=== PATIENT | female | born 1955 | race Caucasian/White ===

== ENCOUNTER 2019-02-06 09:46 | Observation (INO) ==
[2019-02-06] MEDS ORDERED: Isovue-370 500 ML BOTTLE IVP ONE (09:56)
[2019-02-06] MEDS ORDERED: Cefepime HCl 2,000 MG in 0.9 % Sodium Chloride Mini Bag 100 ML IVPB STA (09:58)
--- NOTE | 2019-02-06 10:02 | Emergency Department Note ---
Disposition Clinical Impression: Right wrist pain Disposition: Admitted As Inpatient Condition: Good Time of Disposition: 13:00 Extremity Problem HPI - General Chief complaint: ED Extremity Problem,Nontraumatic Stated complaint: Right Wrist infection from Ortho office Time Seen by Provider: 02/06/19 09:52 Source: patient Mode of arrival: private vehicle Limitations: no limitations Nursing Notes Reviewed: Yes Vital Signs Reviewed: Yes - History of Present Illness HPI Narrative: 63F that had right wrist surgery 11/11/18 that had an uneventful post-operative period until this past 02/04/19 when she developed pain and redness in the area. She was seen in Dr. Cedillo's office this morning where he identified a fluctuant area consistent with abscess as well as cellulitis. Dr. Cedillo reports that he would like to take the patient to the OR today for an I&D and requests basic labs and IV antibiotics. Pt reports she last ate at 0730 this morning at [employer] on her way here. Patient denies being bit by anything or having any accidents to the area. She denies fevers or chills. She reports pain to the area at rest and with movement of her thumb. Pain Scale: 10 - Related Data Home Medications Medication Instructions Recorded Confirmed Alendronate Sodium [Fosamax] 70 mg PO QWEEK 12/19/17 02/06/19 Gabapentin [Neurontin] 400 mg PO TID 12/19/17 02/06/19 Meclizine HCl [Verticalm] 25 mg PO DAILY PRN 12/19/17 02/06/19 Oxycodone HCl [Oxycontin] 5 mg PO HS 12/19/17 02/06/19 Simvastatin [Zocor] 20 mg PO HS 12/19/17 02/06/19 Citalopram Hydrobromide 10 mg PO DAILY 11/16/18 02/06/19 [Citalopram HBr] Pantoprazole Sodium 40 mg PO BID 11/16/18 02/06/19 Amantadine HCl [Amantadine] 100 mg PO BID 02/06/19 02/06/19 Venlafaxine HCl [Venlafaxine HCl 150 mg PO DAILY 02/06/19 02/06/19 ER] Previous Rx's Medication Instructions Recorded Doxycycline 100 mg PO BID 7 Days #14 capsule 02/08/19 Allergies Allergy/AdvReac Type Severity Reaction Status Date / Time codeine Allergy Hives Verified 06/26/17 09:56 Penicillins Allergy Hives Verified 06/26/17 09:56 Review of Systems: In addition to that documented in the HPI above, the additional ROS was obtained: Constitutional: Denies fevers or chills Eyes: Denies vision changes ENMT: Denies sore throat CV: Denies chest pain Resp: Denies SOB GI: Denies vomiting or diarrhea : Denies painful urination MSK: Denies recent trauma Skin: Reports erythema to her right wrist Neuro: Denies new numbness or tingling or weakness Endocrine: Denies unexpected weight loss Heme: Denies bleeding disorders Past Medical History - Past Medical History Attestation: Yes The following information was validated with the patient. Medical history: Reports: GERD, hyperlipidemia, migraine, osteoporosis, other Surgical history: Reports: cholecystectomy, orthopedic, other, other Psychiatric history: Reports: anxiety - Social History Smoking Status: Never smoker Smokeless Tobacco Status: No Alcohol use: Reports: none Drug use: Reports: none Physical Exam General: Alert and in no acute distress Skin: Warm, dry, intact, erythema the right wrist Head: Normocephalic and atraumatic Neck: Supple, trachea midline and no tenderness Cardiovascular: RRR, no murmur, normal perfusion Respiratory: CTAB, no wheezing, cough, or respiratory distress Musculoskeletal: Normal strength, tenderness to palpation of the right lateral wrist with proximal streaking up the forearm GI: Soft, nontender, nondistended. Bowel sounds present Neuro: A&O to person, place, time and situation. No focal deficits noted on exam Psychiatric: cooperative and appropriate mood and affect. - General General appearance: alert, in no apparent distress Course Vital Signs Temperature 98.2 F 02/06/19 09:52 Pulse Rate 69 02/06/19 09:52 Respiratory Rate 15 02/06/19 09:52 Blood Pressure 137/70 02/06/19 09:52 O2 Sat by Pulse Oximetry 100 02/06/19 09:52 Temperature 98.0 F 02/08/19 07:02 Pulse Rate 66 02/08/19 07:02 Respiratory Rate 15 02/08/19 07:02 Blood Pressure 117/63 02/08/19 07:02 O2 Sat by Pulse Oximetry 96 02/08/19 09:45 Oxygen Delivery Oxygen Delivery Room Air Extremity Problem, Nontraumati - MDM Narrative Medical decision making narrative: 63-year-old female that had surgery on her wrist on November 11 and had an uneventful postoperative period until this past Monday when she developed increased pain, swelling, erythema. Patient was seen at Dr. Nichole Álvarez's office this morning where he sent her to the emergency department to be admitted with IV antibiotics. Patient states her last meal was at 7:30 this morning when she stopped at [employer] on the way to the doctor. We will obtain CBC, BMP, lactic acid, blood cultures, EKG, CT with IV contrast on her right wrist. Dr. Nichole dan his said he wants the patient to remain nothing by mouth so that he can take her to the operating room later today. Dr. Nichole Álvarez also requested the patient receive vancomycin and Zosyn however the patient has a penicillin allergy so we will give her cefepime instead of Zosyn. Patient was admitted to Dr. Segura the hospitalist who agreed to take the patient to his care. Results of the workup in cluding any imaging and/or labwork was shared with the patient at bedside. Patient was given an opportunity to ask questions at bedside and all of their concerns were addressed. Patient verbalized understanding and agreement with plan of care. Pt remained stable while in the department. Patient's pain was treated while she was in the department. - Medical Records Medical records reviewed: Yes I reviewed the patient's medical records. - Lab Data Lab results reviewed: Yes I reviewed the patient's lab results. Result diagrams: 02/08/19 04:48 02/08/19 04:48 Lab Results 02/06/19 02/06/19 02/06/19 Range/Units 10:04 10:04 10:04 WBC 11.7 H (4.3-11.1) K/mcL RBC 4.70 (3.82-4.97) M/mcL Hgb 14.1 (11.5-15.4) g/dL Hct 43.9 (35.3-44.9) % MCV 93.4 (83.0-100.0) fL MCH 30.0 (28.0-33.3) pg MCHC 32.1 (31.6-35.5) g/dL RDW 12.7 (11.5-14.5) % Plt Count 242 (140-400) K/mcL MPV 11.1 (9.4-12.4) fL Immature Gran % 0.3 (0-4) % Seg Neutrophils % 82.0 % Lymphocytes % 10.8 % Monocytes % 5.7 % Eosinophils % 0.8 % Basophils % 0.4 % Neutrophils # 9.6 H (1.6-8.9) K/mcL Lymphocytes # 1.3 (0.6-4.6) K/mcL Monocytes # 0.7 (0.0-1.3) K/mcL Eosinophils # 0.1 (0.0-0.6) K/mcL Basophils # 0.1 (0.0-0.2) K/mcL ESR 24 H (0-15) mm/hr Sodium 140 (136-145) mEq/L Potassium 3.7 (3.5-5.1) mEq/L Chloride 104 (98-107) mEq/L Carbon Dioxide 29 (23-29) mEq/L BUN 11 (8-23) mg/dL Creatinine 0.69 (0.60-1.20) mg/dL Est GFR ( Amer) > 60 (> 60) Est GFR (Non-Af Amer) > 60 (> 60) BUN/Creatinine Ratio 16 (6-26) Glucose 118 H (70-105) mg/dL Calculated Osmolality 290 (280-300) Calcium 9.2 (8.6-10.3) mg/dL C-Reactive Protein 20 H (Less than 10) mg/L Blood Type Antibody Screen 02/06/19 Range/Units 10:34 WBC (4.3-11.1) K/mcL RBC (3.82-4.97) M/mcL Hgb (11.5-15.4) g/dL Hct (35.3-44.9) % MCV (83.0-100.0) fL MCH (28.0-33.3) pg MCHC (31.6-35.5) g/dL RDW (11.5-14.5) % Plt Count (140-400) K/mcL MPV (9.4-12.4) fL Immature Gran % (0-4) % Seg Neutrophils % % Lymphocytes % % Monocytes % % Eosinophils % % Basophils % % Neutrophils # (1.6-8.9) K/mcL Lymphocytes # (0.6-4.6) K/mcL Monocytes # (0.0-1.3) K/mcL Eosinophils # (0.0-0.6) K/mcL Basophils # (0.0-0.2) K/mcL ESR (0-15) mm/hr Sodium (136-145) mEq/L Potassium (3.5-5.1) mEq/L Chloride (98-107) mEq/L Carbon Dioxide (23-29) mEq/L BUN (8-23) mg/dL Creatinine (0.60-1.20) mg/dL Est GFR ( Amer) (> 60) Est GFR (Non-Af Amer) (> 60) BUN/Creatinine Ratio (6-26) Glucose (70-105) mg/dL Calculated Osmolality (280-300) Calcium (8.6-10.3) mg/dL C-Reactive Protein (Less than 10) mg/L Blood Type B NEGATIVE Antibody Screen NEGATIVE - Radiology Data Radiology results reviewed: Yes I reviewed the patient's radiology results. Wrist CT 02/06/19 11:46 IMPRESSION: Large amount of fluid within the 1st dorsal extensor compartment tendon sheaths, most consistent with focal tenosynovitis, possibly infectious. Overlying subcutaneous edema, likely cellulitis. No soft tissue gas or acute bony abnormality. D/ / 02/06/2019 11:58:25 Maximus Oconnor MD / steve Interpreting Provider: Maximus Oconnor MD - EKG Data EKG attestation: Yes I reviewed and interpreted this EKG. EKG results narrative: Heart rate 65, rhythm sinus, axis normal. Intervals within normal limits. No ST elevation or depression. Low voltage in precordial leads noted. Baseline wander in lead V4 limits interpretation of study. When compared with previous EKG dated 06/26/2017 there are no significant changes. Attestation Statement - Attestation Attestation: I, Victoriano Villa, examined this patient and my medical decision-making was reviewed with the PIPING SUPERVISOR/PA/Advanced Practice Nurse/Resident Physician. I agree with the documented findings, disposition and treatment plan as described except to the extent set forth below. 63-year-old female presents emergency Department with concerns of right wrist infection. Patient recently had surgery for correction of de Quervain's tenosynovitis. She now has inflammation over the surgical area that is streaking proximally. She has pain with passive range of motion of the thumb and forefinger. We spoke with the orthopedic physician, Dr. Soto who recommended patient be admitted to hospitalist for further care and evaluation. Patient started on antibiotics emergency department and will be admitted to hospitalist.
[2019-02-06 10:27] LABS: Basophils # 0.1 K/mcL (0.0-0.2); Basophils % 0.4 %; Eosinophils # 0.1 K/mcL (0.0-0.6); Eosinophils % 0.8 %; Hematocrit 43.9 % (35.3-44.9); Hemoglobin 14.1 g/dL (11.5-15.4); Immature Granulocytes % 0.3 % (0-4); Lymphocytes # 1.3 K/mcL (0.6-4.6); Lymphocytes % 10.8 %; Mean Corpuscular HGB Conc 32.1 g/dL (31.6-35.5); Mean Corpuscular Volume 93.4 fL (83.0-100.0); Mean Platelet Volume 11.1 fL (9.4-12.4); Monocytes # 0.7 K/mcL (0.0-1.3); Monocytes % 5.7 %; Neutrophils # 9.6 K/mcL (1.6-8.9); Platelet Count 242 K/mcL (140-400); Red Cell Distribution Width 12.7 % (11.5-14.5); White Blood Count 11.7 K/mcL (4.3-11.1)
[2019-02-06 10:46] LABS: BUN/Creatinine Ratio 16 (6-26); Blood Urea Nitrogen 11 mg/dL (8-23); C-Reactive Protein 20 mg/L (Less than 10); Calcium 9.2 mg/dL (8.6-10.3); Carbon Dioxide 29 mEq/L (23-29); Chloride 104 mEq/L (98-107); Glucose 118 mg/dL (70-105); Osmolality,Calculated 290 (280-300); Potassium 3.7 mEq/L (3.5-5.1); Sodium 140 mEq/L (136-145); eGFR For African Americans > 60 (> 60); eGFR For Non-African Americans > 60 (> 60)
[2019-02-06] MEDS ORDERED: *HR* FentaNYL (PF) 100 MCG/2 ML VIAL IVP ONE (11:13)
--- NOTE | 2019-02-06 12:37 | Internal Med History&Physical ---
Date of Encounter: 02/06/19 Time of Encounter: 12:35 Internal Medicine - H&P: HPI Chief complaint: send by orthopedics clinic due to cellulitis Admitted From: Home Plans for Post Hospital Care: Home History of present illness: Ms. Reyes is a 63 year old female past medical history of possible Parkinson's, sleep apnea, chronic back pain neck pain right shoulder pain, migraine, anxiety and depression who recently had right wrist surgery on 11/11/18 with orthopedist where she had an "stretching of her tendon". she was doing relatively fine except since Monday she has noticed increased pain and swelling and redness on the right wrist at the site of surgery. She denies any fevers or chills nausea or vomiting at home. Denies being on any antibiotics after surgery. Patient was sent from orthopedist office for incision and drainage and IV antibiotics. Patient ate this morning. Denies any tingling numbness or loss of sensation in her right wrist. Denies any other skin rash. Denies any chest pain difficulty breathing abdominal pain. Has chronic back pain and right shoulder pain. Reports some allergic reaction to amoxicillin where she had one vomiting episode but denies any skin hives, difficulty breathing or life- threatening illness and this was more than 5 years ago. Denies any other allergies. Does not know her home medication except oxycodone, gabapentin however is taking more medications. Patient was admitted in the ER with labs significant for mildly elevated WBC at 11.7, ESR 24 and CRP 20. Patient was given vancomycin and cefepime in ER. Past Med Surg Social Fam HX - Past Medical History Medical history: GERD, hyperlipidemia, migraine, osteoporosis, other Additional medical history: sleep apnea, possible Parkinson's Psychiatric history: anxiety - Past Surgical History Surgical History: cholecystectomy, orthopedic, other, other Additional surgical history: Hemorrhoidectomy. disc fusion. Left shoulder. Bilat foot - Social History Smoking Status: Never smoker Smokeless Tobacco Status: No Alcohol use: none Drug use: none - Additional Family History Additional family history: Mother had colon cancer at 69. Internal Medicine - H&P: Meds Alendronate Sodium [Fosamax] 70 mg PO QWEEK 12/19/17 [History] Amantadine HCl [Amantadine] 200 mg PO BID 12/19/17 [History] Aspirin [Adult Aspirin Regimen] 81 mg PO DAILY 12/19/17 [History] Calcium Carb, Citrate/Vit D3 [Calcium + D3 ER Tablet] 1 each PO DAILY 12/19/17 [History] Gabapentin [Neurontin] 400 mg PO TID 12/19/17 [History] Meclizine HCl [Verticalm] 25 mg PO DAILY PRN 12/19/17 [History] Oxycodone HCl [Oxycontin] 5 mg PO HS 12/19/17 [History] Simvastatin [Zocor] 20 mg PO HS 12/19/17 [History] Venlafaxine HCl [Venlafaxine HCl ER] 75 mg PO DAILY 12/19/17 [History] Citalopram Hydrobromide [Citalopram HBr] 1 tab PO PRN PRN 11/16/18 [History] PARoxetine HCl [Paroxetine HCl] 1 tab PO DAILY 11/16/18 [History] Pantoprazole Sodium 1 tab PO DAILY 11/16/18 [History] Pregabalin [Lyrica] 2 cap PO TID 11/16/18 [History] Temazepam [Restoril] 1 cap PO HS PRN 11/16/18 [History] Topiramate [Topamax] 1 tab PO DAILY 11/16/18 [History] Allergy/AdvReac Type Severity Reaction Status Date / Time codeine Allergy Hives Verified 06/26/17 09:56 Penicillins Allergy Hives Verified 06/26/17 09:56 All Systems PM: A 10-system review of systems was performed and is negative for pertinent findings except as documented above in the HPI. - Constitutional Vitals: Temp Pulse Resp BP Pulse Ox 98.2 F 73 15 137/71 100 02/06/19 09:52 02/06/19 11:46 02/06/19 11:46 02/06/19 11:46 02/06/19 11:46 Exam: Constitutional: Vitals as noted. Conversant. No Apparent Distress. Well groomed. No obvious deformities. Obese Eyes : Sclera white, conjunctiva clear, no lid lag, PEARLA. ENT : Grossly normal hearing. Oropharyngeal exam unremarkable. Moist mucus membranes. No JVD, no cervical lymphadenopathy. no thyromegaly or mass. Respiratory : Clear to auscultation bilaterally. No accessory muscle use, rales, rhonchi or wheezes Cardiovascular : RRR, +S1, +S2. no murmur, gallop, rubs. No chest wall tenderness GI/Abdominal : Soft, Non-tender, Non-distended, normal bowel sounds, no periton eal signs. no orgenomegaly or mass appreciated. no hernia. Musculoskeletal: pulses palpable and symmetrical in UE/LE. no calf tenderness. Rt wrist with fluctuance on dorsal compartment with redness, swelling and pain on ROM. Sensations intact distally. Neurological: AO X3, CN II-XII grossly intact, grossly normal motor and sensory exam. Skin: No skin rash, lesions or ulcers noted. Pych: anxious Internal Med - H&P Results - Labs CBC & Chem 7: 02/06/19 10:04 02/06/19 10:04 Labs: Short CBC 02/06/19 Range/Units 10:04 WBC 11.7 H (4.3-11.1) K/mcL Hgb 14.1 (11.5-15.4) g/dL Hct 43.9 (35.3-44.9) % Plt Count 242 (140-400) K/mcL Neutrophils # 9.6 H (1.6-8.9) K/mcL BMP 02/06/19 10:04 Sodium 140 Potassium 3.7 Chloride 104 Carbon Dioxide 29 BUN 11 Creatinine 0.69 Glucose 118 H Calcium 9.2 - Impressions ITS Impressions Wrist CT 02/06/19 11:46 IMPRESSION: Large amount of fluid within the 1st dorsal extensor compartment tendon sheaths, most consistent with focal tenosynovitis, possibly infectious. Overlying subcutaneous edema, likely cellulitis. No soft tissue gas or acute bony abnormality. D/ / 02/06/2019 11:58:25 Maximus Oconnor MD / steve Interpreting Provider: Maximus Oconnor MD - Assessment and Plan (1) Cellulitis Current Visit: Yes Status: Acute Assessment and plan: Patient has cellulitis over surgical site We will keep patient on empiric vancomycin. We will switch cefepime to Zosyn given allergy likely not accurate and monitor signs of allergies. Patient agreeable. Blood cultures collected in ER. Follow-up CT scan. Patient has plan for I&D with orthopedist however patient ate this morning. We will keep nothing by mouth after midnight for possible procedure tomorrow. Qualifiers: Site of cellulitis: extremity Site of cellulitis of extremity: upper extremity Laterality: right Qualified Code(s): L03.113 - Cellulitis of right upper limb (2) Chronic pain Current Visit: Yes Status: Acute Assessment and plan: Patient has chronic pain which she thinks is from working too hard on concrete floors Possible component of anxiety and depression. Patient had cardiac surgery related to pain Will need close outpatient follow-up. We will resume home medications for pain was confirmed. Qualifiers: Chronic pain type: other chronic pain Qualified Code(s): G89.29 - Other chronic pain (3) Migraine Current Visit: Yes Status: Acute Qualifiers: Migraine type: without aura Status migrainosus presence: without status migrainosus Intractability: not intractable Qualified Code(s): G43.009 - Migraine without aura, not intractable, without status migrainosus (4) Depression Current Visit: Yes Status: Acute Assessment and plan: Continue home medicine confirmed Qualifiers: Depression Type: unspecified Qualified Code(s): F32.9 - Major depressive disorder, single episode, unspecified (5) DVT prophylaxis Current Visit: Yes Status: Acute Assessment and plan: heparin sc - Time Spent With Patient Total time spent is greater than 50% in coordination of care (as documented) at patient's floor/unit and/or counseling patient:
[2019-02-06] MEDS ORDERED: *HR* Heparin 5,000 UNIT/ML VIAL SQ SCH (14:00)
[2019-02-06] MEDS ORDERED: FLU Vac QV 19-20 (6Month+)/PF 0.5 ML SYRINGE IM ONE (14:27)
[2019-02-06] MEDS ORDERED: Piperacillin/Tazobactam 3.375 GM in 0.9 % Sodium Chloride Mini Bag 100 ML IVPB SCH (16:00)
--- NOTE | 2019-02-06 19:39 | Orthopedics Progress Note ---
Date of Encounter: 02/06/19 Time of Encounter: 19:37 Subjective Interval history: S: Patient previously underwent right first dorsal compartment release about 3 months ago. She had been doing very well until Monday when she began noticing redness and swelling to the right radial wrist. She presented to the office today where she was referred to the emergency department due to concern for un derlying abscess. O: Afebrile and vital signs are stable Right wrist is puffy and fluctuant about the first dorsal compartment with surrounding cellulitis. No induration. The area is quite tender and radiates proximally to the mid radial forearm region. The patient can actively flex and extend all digits, extend the thumb, cross the index and long fingers, make an okay sign, and oppose the thumb. The fingertips are all grossly sensate and well-perfused, and the radial artery pulse is 2+. CT scan of the right wrist does show fluid in the first was compartment concerning for purulent tenosynovitis A: Purulent extensor tenosynovitis of the first dorsal compartment P: Plans for incision, drainage, irrigation, debridement tonight in the operating room. The risks discussed included but were not limited to stiffness, bleeding, infection, blood clots, damage to neurovascular structures, tendons, ligaments, and bone. Also discussed was the risk of continued symptoms and possible need for further procedures. I did discuss the anesthesia risks including stroke, heart attack, and . I did discuss the reasonable, foreseeable postoperative course with the patient. The patient did wish to proceed and consent was obtained. Objective Vital signs: Vital Signs Temp Pulse Resp BP Pulse Ox 02/06/19 15:27 98.6 F 75 15 124/76 95 02/06/19 14:00 100 02/06/19 13:11 15 138/74 02/06/19 11:46 73 15 137/71 100 02/06/19 09:52 98.2 F 69 15 137/70 100 Intake and Output 02/06/19 02/06/19 02/06/19 07:59 15:59 23:59 Intake Total 100 / 100 Output Total 100 / 100 Balance 0 / 0 Intake: IV Fluids 100 / 100 Maxipime 2,000 MG In 0.9 % 100 / 100 Sodium Chloride (Mini-Bag +) 100 ML @ 200 mls/hr IVPB NOW STA Rx#:[id number] Output: Urine 100 / 100 Other: Meal npo Weight 100.108 kg Blood Glucose* 102 Patient Weight 02/06/19 23:59 Weight 100.108 kg - Labs CBC & BMP: 02/06/19 10:04 02/06/19 10:04 Labs: Abnormal lab results WBC 11.7 K/mcL (4.3-11.1) H 02/06/19 10:04 Neutrophils # 9.6 K/mcL (1.6-8.9) H 02/06/19 10:04 ESR 24 mm/hr (0-15) H 02/06/19 10:04 Glucose 118 mg/dL (70-105) H 02/06/19 10:04 C-Reactive Protein 20 mg/L (Less than 10) H 02/06/19 10:04 Consult Discharge Plan - Plan Referrals: Lang Davis MD [Primary Care Provider] -
--- NOTE | 2019-02-06 20:08 | Anesthesia Evaluation PreOp ---
Date of Encounter: 02/06/19 Time of Encounter: 20:00 - Past History Planned Operation: Incision Drainage Rt Upper Extremity Cardiac History: Hyperlipidemia Pulmonary History: SHASTA Dx STEELWORKER History: Other (Parkinson's) Other Medical History: GERD, Other (Anxiety) Anesthesia History: No Prior Anesthetic Complications : No Alcohol Use: none Drug use: none Medications and Allergies Alendronate Sodium [Fosamax] 70 mg PO QWEEK 12/19/17 [History] Gabapentin [Neurontin] 400 mg PO TID 12/19/17 [History] Meclizine HCl [Verticalm] 25 mg PO DAILY PRN 12/19/17 [History] Oxycodone HCl [Oxycontin] 5 mg PO HS 12/19/17 [History] Simvastatin [Zocor] 20 mg PO HS 12/19/17 [History] Citalopram Hydrobromide [Citalopram HBr] 10 mg PO DAILY 11/16/18 [History] Pantoprazole Sodium 40 mg PO BID 11/16/18 [History] Amantadine HCl [Amantadine] 100 mg PO BID 02/06/19 [History] Venlafaxine HCl [Venlafaxine HCl ER] 150 mg PO DAILY 02/06/19 [History] Allergy/AdvReac Type Severity Reaction Status Date / Time codeine Allergy Hives Verified 06/26/17 09:56 Penicillins Allergy Hives Verified 06/26/17 09:56 - Meds/Allergy Pre-op Review Medications Reviewed: Yes Allergies Reviewed: Yes Beta Blockers on Current Med List: No Anesthesia Results - Labs 02/06/19 10:04 02/06/19 10:04 Anesthesia Exam O2 Sat Height 1.65 m Weight 100.108 kg O2 Sat by Pulse Oximetry 96 O2 Sat by Pulse Oximetry 95 O2 Sat by Pulse Oximetry 100 O2 Sat by Pulse Oximetry 100 O2 Sat by Pulse Oximetry 100 Vital Signs Temp Pulse Resp BP Pulse Ox 98.2 F 69 15 137/70 100 02/06/19 09:52 02/06/19 09:52 02/06/19 09:52 02/06/19 09:52 02/06/19 09:52 Height: 5'5 Weight: 220 lbs NPO (# of Hours): 0800 breakfast Pain Scale: 0 - HEENT Pupil (Motor): Pupils equal, EOMI Mallampati: II Teeth: Normal Oral Opening: Greater than 3 - STEELWORKER LOC: Oriented STEELWORKER Motor: Normal RUE, Normal LUE, Normal RLE, Normal LLE, Normal Face STEELWORKER Sensory: Normal: RUE, LUE, RLE, LLE, Face - Cardiac Rhythm: Regular Murmur: None JVD: No Carotid Bruit: No - Pulmonary Breath Sounds: bilateral Clear Respiratory Effort: Symmetrical Anesthesia Assess/Plan ASA Score: 2 Level of consciousness: Cooperative, Oriented Anesthetic Plan: General Autologous Blood: No Monitoring Plan: Standard Monitors Recovery Plan: PACU (Discussed GA, agrees to proceed)
[2019-02-06] MEDS ORDERED: Bupivacaine/EPI 1:200k 0.5%PF 10 ML VIAL ONE (20:11)
[2019-02-06] MEDS ORDERED: Lidocaine/EPI 1:100k 1% 20 ML VIAL ONE (20:11)
[2019-02-06] MEDS ORDERED: Acetaminophen IV 1,000 MG/100 ML INFUS..BTL ONE (20:12)
[2019-02-06] MEDS ORDERED: Famotidine 20 MG/2 ML VIAL ONE (20:12)
[2019-02-06] MEDS ORDERED: *HR* FentaNYL (PF) 100 MCG/2 ML VIAL ONE (20:21)
[2019-02-06] MEDS ORDERED: *HR* Propofol 200 MG/20 ML VIAL IVP ONE (20:21)
[2019-02-06] MEDS ORDERED: Lidocaine -MPF 2% 2 ML VIAL ONE (20:21)
[2019-02-06] MEDS ORDERED: Dexamethasone 4 MG/ML VIAL ONE (20:22)
[2019-02-06] MEDS ORDERED: *HR* Succinylcholine 200 MG/10 ML VIAL IVP ONE (20:22)
[2019-02-06] MEDS ORDERED: Ondansetron 4 MG/2 ML VIAL ONE (20:22)
[2019-02-06] MEDS ORDERED: Ketorolac 30 MG/ML VIAL ONE (20:44)
[2019-02-06] MEDS ORDERED: Ondansetron 4 MG/2 ML VIAL IVP ONE ×2 (21:02→21:37)
[2019-02-06] MEDS ORDERED: *HR* OxyCODONE Immed Rel 5 MG TABLET PO PRN ×2 (21:02→21:37)
[2019-02-06] MEDS ORDERED: Morphine Sulfate 2 MG/ML SYRINGE IVP PRN ×2 (21:02→21:37)
--- NOTE | 2019-02-06 21:17 | Orthopedic Operative Note ---
Date of procedure: 02/06/19 Procedure: OPERATIVE REPORT SURGEON: Avel Cedillo MD PREOPERATIVE DIAGNOSIS: Right purulent extensor tenosynovitis of the first dorsal compartment POSTOPERATIVE DIAGNOSIS: Same PROCEDURE: Incision, drainage, irrigation, and debridement of the right first dorsal compartment ANESTHESIA: Gen. anesthesia SPECIMENS: Culture sent for aerobic and anaerobic specimens PREOPERATIVE NOTE The surgical plan was reviewed with the patient. The risks, benefits, alternatives, and potential complications of this procedure were discussed with the patient including injury to veins, arteries, nerves, tendons, ligaments, and bone. Also discussed were the risks of infection, bleeding, pain, blood clots, the possible need for a blood transfusion, the possible need for further procedures, heart attack, stroke, and . Additional risks include continued symptoms despite surgery or the need for further debridements. All of this was explained in simple terms, and the patient verbalized understanding and wished to proceed. Consent was given to proceed with surgery. PROCEDURE: The patient was seen in the preoperative holding area where the identify and the consent were confirmed. The right wrist was marked. Final questions were answered. The patient was brought back to the operating room and placed supine on the operating room table. A huddle was performed with the patient and all vital surgical team members confirming patient identity, the correct procedure, and the correct operative site. Gen. anesthesia was administered. The operative extremity was prepped and draped in the usual sterile fashion. A surgical time out was performed immediately preceding the incision with all personnel in the operating room to confirm patient identity, the correct operative site and extremity, correct radiographic studies, availability of appropriate surgical equipment, and agreement on the planned procedure. The tourniquet was inflated without examination. The old incision was opened and the subcutaneous tissue was spread open with scissors bluntly. This did immediately decompress copious amounts of purulent material. This was swabbed for culture. There is a moderate amount of tenosynovitis which was sharply debrided. No necrotic material. The wound was flushed with 3 L of saline. It was closed loosely over a quarter inch Jordyn drain. A soft, sterile dressing was applied. The instrument, sponge, and needle counts were correct after wound closure. POST OPERATIVE PLAN: Continue IV antibiotics for the primary team. Follow cultures. Was there an exceptional children teacher assistant present: No Estimated blood loss (cc): 1
--- NOTE | 2019-02-06 21:59 | Anesthesia Evaluation Post Op ---
Date of Encounter: 02/06/19 Time of Encounter: 21:20 - Vital Signs Vital Signs: Vital Signs/O2 Sat/Glucose, Most Current Temp Pulse Resp BP Pulse Ox 02/06/19 21:30 99.9 F H 65 16 120/69 94 02/06/19 21:20 66 15 134/71 92 02/06/19 21:10 67 16 127/73 92 02/06/19 21:00 98.1 F 68 17 147/93 92 02/06/19 19:36 98.4 F 83 16 123/66 96 - Lungs Lungs: Clear Ascult./Percussion - Airway Airway: Non-obstructed - Cardiovascular Regular Rate - Mental Status Mental Status: Alert & Oriented, Answers Appropriately - Pain Pain Scale: 0 - Nausea Vomiting Nausea Vomiting: Not Present - Hydration Hydration: Ice chips - Discharge PostOp Status: Transfer Patient to floor
[2019-02-06] MEDS: *HR* Heparin 5,000 UNIT/ML VIAL SQ SCH (22:04)
[2019-02-07] MEDS: Piperacillin/Tazobactam 3.375 GM in 0.9 % Sodium Chloride Mini Bag 100 ML IVPB SCH ×4 (00:40→23:06)
[2019-02-07] MEDS: *HR* Heparin 5,000 UNIT/ML VIAL SQ SCH ×3 (05:50→20:35)
--- NOTE | 2019-02-07 06:53 | Electrocardiograph Report ---
[employer] [facility] Test Date: 2019-02-06 Pat Name: Ayla Reyes Department: EXAM6 Room: [facility] Gender: F Venetian Blind [employer]her: : 1955 Requested By: Jada Watkins Order Number: [id number] Reading MD: Henry Daniels Measurements Intervals [place] Rate: 65 P: 8 GA: 119 QRS: 20 QRSD: 86 T: 57 QT: 409 QTc: 426 Interpretive Statements Sinus rhythm Electronically Signed On 02-07-2019 6:52:12 EDT by Henry Daniels
[2019-02-07 07:13] LABS: Basophils % 0.2 %; Hematocrit 40.7 % (35.3-44.9); Hemoglobin 13.1 g/dL (11.5-15.4); Lymphocytes # 0.5 K/mcL (0.6-4.6); Lymphocytes % 6.3 %; Mean Corpuscular HGB Conc 32.2 g/dL (31.6-35.5); Mean Corpuscular Hemoglobin 30.6 pg (28.0-33.3); Mean Corpuscular Volume 95.1 fL (83.0-100.0); Mean Platelet Volume 11.4 fL (9.4-12.4); Monocytes # 0.2 K/mcL (0.0-1.3); Monocytes % 2.6 %; Neutrophils # 7.6 K/mcL (1.6-8.9); Platelet Count 226 K/mcL (140-400); Red Blood Count 4.28 M/mcL (3.82-4.97); Red Cell Distribution Width 12.7 % (11.5-14.5); Segmented Neutrophils % 89.9 %; White Blood Count 8.4 K/mcL (4.3-11.1)
[2019-02-07] MEDS ORDERED: Acetaminophen 325 MG TABLET PO ONE (07:20)
[2019-02-07 07:28] LABS: BUN/Creatinine Ratio 16 (6-26); Blood Urea Nitrogen 11 mg/dL (8-23); Calcium 8.6 mg/dL (8.6-10.3); Carbon Dioxide 26 mEq/L (23-29); Chloride 106 mEq/L (98-107); Glucose 136 mg/dL (70-105); Osmolality,Calculated 293 (280-300); Potassium 3.8 mEq/L (3.5-5.1); Sodium 141 mEq/L (136-145); eGFR For African Americans > 60 (> 60); eGFR For Non-African Americans > 60 (> 60)
--- NOTE | 2019-02-07 07:34 | Orthopedics Progress Note ---
Date of Encounter: 02/07/19 Time of Encounter: 07:32 Subjective Interval history: S: Patient is seen today and has no complaints. Pain significantly improved to the right wrist O: Afebrile and vital signs are stable Minimal serosanguineous drainage from the wound. The [place] drain was pulled. Significant improvement of the cellulitis with marked this patient Neurovascularly intact distally A: Post I&D of the right radial wrist P: Resume postoperative care Anticipate discharge on oral antibiotics tomorrow Objective Vital signs: Vital Signs Temp Pulse Resp BP Pulse Ox 02/07/19 04:41 98.1 F 72 16 100/64 93 02/07/19 00:35 98.1 F 70 18 99/62 92 02/06/19 23:35 98.0 F 70 18 95/53 93 02/06/19 23:12 98.6 F 74 16 125/70 96 02/06/19 22:35 91 18 114/66 91 02/06/19 22:05 78 18 121/74 94 02/06/19 21:35 98.0 F 68 18 121/71 94 02/06/19 21:30 99.9 F H 65 16 120/69 94 02/06/19 21:20 66 15 134/71 92 02/06/19 21:10 67 16 127/73 92 02/06/19 21:00 98.1 F 68 17 147/93 92 02/06/19 19:36 98.4 F 83 16 123/66 96 02/06/19 15:27 98.6 F 75 15 124/76 95 02/06/19 14:00 100 02/06/19 13:11 15 138/74 02/06/19 11:46 73 15 137/71 100 02/06/19 09:52 98.2 F 69 15 137/70 100 Intake and Output 02/06/19 02/06/19 02/07/19 15:59 23:59 07:59 Intake Total 100 / 130 30 / 130 350 / 350 Output Total 100 / 101 1 / 101 Balance 0 / 29 29 / 29 350 / 350 Intake: IV Fluids 100 / 100 350 / 350 Maxipime 2,000 MG In 0.9 % 100 / 100 Sodium Chloride (Mini-Bag +) 100 ML @ 200 mls/hr IVPB NOW STA Rx#:[id number] Zosyn 3.375 GM In 0.9 % Sodium 100 / 100 Chloride (Mini-Bag +) 100 ML @ 25 mls/hr IVPB Q8HR [facility] Rx#: [id number] Vancocin 1,500 MG In 0.9 % 250 / 250 Sodium Chloride 250 ML @ 166.67 mls/hr IVPB Q12H [facility] Rx#: [id number] Oral 30 / 30 Output: Urine 100 / 100 Estimated Blood Loss Other: Meal npo # Voids 1 Weight 100.108 kg 99.6 kg Blood Glucose* 102 Patient Weight 02/07/19 23:59 Weight 99.6 kg - Labs CBC & BMP: 02/07/19 05:58 02/07/19 05:58 Labs: Abnormal lab results WBC 11.7 K/mcL (4.3-11.1) H 02/06/19 10:04 Neutrophils # 9.6 K/mcL (1.6-8.9) H 02/06/19 10:04 Lymphocytes # 0.5 K/mcL (0.6-4.6) L 02/07/19 05:58 ESR 24 mm/hr (0-15) H 02/06/19 10:04 Glucose 136 mg/dL (70-105) H 02/07/19 05:58 POC Glucose 102 mg/dL (70-99) H 02/06/19 17:06 C-Reactive Protein 20 mg/L (Less than 10) H 02/06/19 10:04 Consult Discharge Plan - Plan Referrals: Lang Davis MD [Primary Care Provider] - Avel Cedillo MD [Partnered Physician] -
[2019-02-07] MEDS ORDERED: SUMAtriptan succinate 25 MG TABLET PO ONE ×2 (08:33→20:54)
[2019-02-07] MEDS: Gabapentin 400 MG CAPSULE PO SCH ×3 (09:14→20:35)
[2019-02-07] MEDS: Venlafaxine XR (24 HR) 75 MG CAP.ER.24H PO SCH (09:16)
--- NOTE | 2019-02-07 10:09 | Internal Med Progress Note ---
Hospitalist Progress Note - Encounter Date of Encounter: 02/07/19 Time of Encounter: 08:20 - Subjective Interval History: Seen at bedside, was taken to the OR yesterday for the I & D. Has been doing well. Denies any pain at the surgical site. Denies any fever, chills, rigors overnight. Endorses migraine headaches for which she was given Tylenol in the morning today. No other events overnight. - Exam Vitals: Temp Pulse Resp BP Pulse Ox 98.3 F 70 18 123/64 94 02/07/19 07:31 02/07/19 07:31 02/07/19 07:31 02/07/19 07:31 02/07/19 07:31 Exam: General: Alert and oriented, no physical distress, able to follow commands. HEENT: No thyromegaly, no lymphadenopathy, no discharge. Eyes: No discharge. Normal conjuctiva, no icterus Respiratory: Normal vesicular breathing, no added sounds, breathing equal in both sides. CVS: Normal heart sounds, no murmurs, regular rhthm, no edema Extremities: Right wrist wrapped and dressed, distal pulses intact, neurovas cular intact. Lymph nodes: No lymphadenopathy Gastrointestinal: Soft, nontender abdomen, normal abdominal sounds. No distention noted. Genitourinary: No paravertebral tenderness. Skin: No rash, ulcers or wound. Neurological: Alert and oriented. No focal deficits. Cranial nerves II-XII intact. - Assessment and Plan (1) Tenosynovitis of right wrist Current Visit: Yes Status: Acute Assessment and Plan: CT scan evidence of focal tenosynovitis. Patient got incision, drainage, irrigation and debridement of the right first dorsal compartment. Wound cultures sent. Currently on broad-spectrum antibiotics. We will continue the IV antibiotic for 1 more day, discharge tomorrow on oral antibiotics. Pain management. (2) Abscess or cellulitis of wrist Current Visit: Yes Status: Acute Assessment and Plan: Plan as mentioned above. (3) Chronic pain Current Visit: Yes Status: Acute (4) Migraine Current Visit: Yes Status: Acute Assessment and Plan: Patient developed migraine today in the morning. Was given Tylenol with minimal relief. Ordered oral sumatriptan with the patient had been using at home with relief. (5) Depression Current Visit: Yes Status: Acute Assessment and Plan: Continue home medications. (6) DVT prophylaxis Current Visit: Yes Status: Acute Assessment and Plan: heparin sc (7) Hyperlipidemia Current Visit: Yes Status: Acute Assessment and Plan: Continue home simvastatin - Time Spent with Patient Total time spent is greater than 50% in coordination of care (as documented) at patient's floor/unit and/or counseling patient: Internal Medicine: Result - Labs CBC & Chem 7: 02/07/19 05:58 02/07/19 05:58 Labs: Short CBC 02/06/19 02/07/19 Range/Units 10:04 05:58 WBC 11.7 H 8.4 (4.3-11.1) K/mcL Hgb 14.1 13.1 (11.5-15.4) g/dL Hct 43.9 40.7 (35.3-44.9) % Plt Count 242 226 (140-400) K/mcL Neutrophils # 9.6 H 7.6 (1.6-8.9) K/mcL BMP 02/06/19 02/07/19 10:04 05:58 Sodium 140 141 Potassium 3.7 3.8 Chloride 104 106 Carbon Dioxide 29 26 BUN 11 11 Creatinine 0.69 0.70 Glucose 118 H 136 H Calcium 9.2 8.6 - Impressions Impressions Wrist CT 02/06/19 11:46 IMPRESSION: Large amount of fluid within the 1st dorsal extensor compartment tendon sheaths, most consistent with focal tenosynovitis, possibly infectious. Overlying subcutaneous edema, likely cellulitis. No soft tissue gas or acute bony abnormality. D/ / 02/06/2019 11:58:25 Maximus Oconnor MD / steve Interpreting Provider: Maximus Oconnor MD Consult Discharge Plan - Plan Referrals: Lang Davis MD [Primary Care Provider] - Avel Cedillo MD [Partnered Physician] - _ (3) Chronic pain Qualifiers: Chronic pain type: other chronic pain Qualified Code(s): G89.29 - Other chronic pain (4) Migraine Qualifiers: Migraine type: without aura Status migrainosus presence: without status migrainosus Intractability: not intractable Qualified Code(s): G43.009 - Migraine without aura, not intractable, without status migrainosus (5) Depression Qualifiers: Depression Type: unspecified Qualified Code(s): F32.9 - Major depressive disorder, single episode, unspecified
[2019-02-07] MEDS ORDERED: Aminoglycoside Consult 1 EACH MC ONE (12:29)
[2019-02-07] MEDS ORDERED: Acetaminophen 325 MG TABLET PO PRN (17:56)
[2019-02-08 05:51] LABS: Basophils # 0.1 K/mcL (0.0-0.2); Basophils % 0.6 %; Eosinophils # 0.1 K/mcL (0.0-0.6); Eosinophils % 1.5 %; Hematocrit 38.8 % (35.3-44.9); Hemoglobin 12.6 g/dL (11.5-15.4); Immature Granulocytes % 0.1 % (0-4); Lymphocytes # 2.6 K/mcL (0.6-4.6); Lymphocytes % 33.1 %; Mean Corpuscular HGB Conc 32.5 g/dL (31.6-35.5); Mean Corpuscular Hemoglobin 30.6 pg (28.0-33.3); Mean Corpuscular Volume 94.2 fL (83.0-100.0); Mean Platelet Volume 11.4 fL (9.4-12.4); Monocytes # 0.6 K/mcL (0.0-1.3); Monocytes % 7.4 %; Neutrophils # 4.5 K/mcL (1.6-8.9); Platelet Count 223 K/mcL (140-400); Red Blood Count 4.12 M/mcL (3.82-4.97); Red Cell Distribution Width 12.6 % (11.5-14.5); Segmented Neutrophils % 57.3 %; White Blood Count 7.8 K/mcL (4.3-11.1)
[2019-02-08] MEDS: *HR* Heparin 5,000 UNIT/ML VIAL SQ SCH (05:56)
[2019-02-08 06:18] LABS: BUN/Creatinine Ratio 19 (6-26); Blood Urea Nitrogen 14 mg/dL (8-23); Calcium 8.2 mg/dL (8.6-10.3); Carbon Dioxide 25 mEq/L (23-29); Chloride 106 mEq/L (98-107); Glucose 101 mg/dL (70-105); Osmolality,Calculated 299 (280-300); Potassium 3.4 mEq/L (3.5-5.1); Sodium 144 mEq/L (136-145); eGFR For African Americans > 60 (> 60); eGFR For Non-African Americans > 60 (> 60)
[2019-02-08 07:03] VITALS: BP 117/63
--- NOTE | 2019-02-08 07:29 | Orthopedics Progress Note ---
Date of Encounter: 02/08/19 Time of Encounter: 07:27 Subjective Interval history: S: Patient is seen today and has no complaints. Pain significantly improved to the right wrist O: Afebrile and vital signs are stable Minimal serosanguineous drainage from the wound. Cellulitis resolved Neurovascularly intact distally A: Post I&D of the right radial wrist P: Resume postoperative care Respiratory stable for discharge today on oral antibiotics. I did discuss daily dressing changes and soapy soaks. Objective Vital signs: Vital Signs Temp Pulse Resp BP Pulse Ox 02/08/19 07:02 98.0 F 66 15 117/63 96 02/08/19 02:48 97.6 F 65 16 108/66 95 02/07/19 22:48 98.6 F 76 18 122/53 95 02/07/19 19:34 98.3 F 84 15 115/68 95 02/07/19 15:59 98.4 F 71 20 134/69 97 02/07/19 11:01 98.4 F 75 16 128/70 97 02/07/19 07:31 98.3 F 70 18 123/64 94 Intake and Output 02/07/19 02/07/19 02/08/19 15:59 23:59 07:59 Intake Total 250 / 760 160 / 760 380 / 380 Output Total 100 / 600 500 / 600 0 / 0 Balance 150 / 160 -340 / 160 380 / 380 Intake: IV Fluids 250 / 700 100 / 700 350 / 350 Zosyn 3.375 GM In 0.9 % Sodium 100 / 200 100 / 100 Chloride (Mini-Bag +) 100 ML @ 25 mls/hr IVPB Q8HR [facility] Rx#: [id number] Vancocin 1,500 MG In 0.9 % 250 / 500 250 / 250 Sodium Chloride 250 ML @ 166.67 mls/hr IVPB Q12H [facility] Rx#: [id number] Oral 0 / 60 60 / 60 30 / 30 Output: Urine 100 / 600 500 / 600 0 / 0 Other: Meal Breakfast Percent of Meal Consumed 0% Weight 98.9 kg Patient Weight 02/08/19 23:59 Weight 98.9 kg - Labs CBC & BMP: 02/08/19 04:48 02/08/19 04:48 Labs: Abnormal lab results WBC 11.7 K/mcL (4.3-11.1) H 02/06/19 10:04 Neutrophils # 9.6 K/mcL (1.6-8.9) H 02/06/19 10:04 Lymphocytes # 0.5 K/mcL (0.6-4.6) L 02/07/19 05:58 ESR 24 mm/hr (0-15) H 02/06/19 10:04 Potassium 3.4 mEq/L (3.5-5.1) L 02/08/19 04:48 Glucose 136 mg/dL (70-105) H 02/07/19 05:58 POC Glucose 102 mg/dL (70-99) H 02/06/19 17:06 Calcium 8.2 mg/dL (8.6-10.3) L 02/08/19 04:48 C-Reactive Protein 20 mg/L (Less than 10) H 02/06/19 10:04 Vancomycin Trough 13 mcg/mL (5-10) H 02/07/19 22:46 Consult Discharge Plan - Plan Additional Instructions: DISCHARGE INSTRUCTIONS Dr. Cedillo DISCHARGE DIAGNOSIS/PROCEDURE I&D of the right wrist first dorsal compartment ACTIVITY: Avoid aggressive activities with arm in which you were operated. Okay to move your fingers which will be good exercise. WOUND CARE: Change dressing daily and cleanse the wound with warm, soapy water and rinsed clean. Recover. MEDICATIONS: Oral antibiotics per the discharging hospitalist FOLLOW-UP Follow-up with Dr. Cedillo or Nancy Back PA-C at the office 1 week from the surgery date for a post operative evaluation. Call the office at [phone] to schedule or confirm your appointment. WHEN TO CALL THE DOCTOR OR WHEN TO SEEK CARE BEFORE YOUR APPOINTMENT 1. Excess swelling or increased numbness not made better by elevating the hand and moving the fingers. 2. Uncontrolled pain. 3. A color change in your hand or fingers. 4. Worsening redness or drainage. 5. Fevers over 100.5 degrees F or 38.1 degrees C. 6. Any symptoms that bring concern to you. Referrals: Lang Davis MD [Primary Care Provider] - Avel Cedillo MD [Partnered Physician] -
--- NOTE | 2019-02-08 08:39 | Discharge Summary ---
- NOTES TO OUTPATIENT PROVIDER Notes to Outpatient Provider: Right wrist abscss s/p I & D. Doxycycine gven on discharge. Orders not resulted at time of discharge: Pending orders 02/06/19 10:04 Culture,Blood [] Stat 02/06/19 20:49 Culture,Anaerobic [] Routine Culture,Wound,with Gram Stain [] Routine Date of Encounter: 02/08/19 Time of Encounter: 08:25 - Discharge Diagnosis (1) Tenosynovitis of right wrist Priority: Primary Status: Acute (2) Abscess or cellulitis of wrist Priority: Secondary Status: Acute (3) Chronic pain Priority: Secondary Status: Acute Qualifiers: Chronic pain type: other chronic pain Qualified Code(s): G89.29 - Other chronic pain (4) Migraine Priority: Secondary Status: Acute Qualifiers: Migraine type: without aura Status migrainosus presence: without status migrainosus Intractability: not intractable Qualified Code(s): G43.009 - Migraine without aura, not intractable, without status migrainosus (5) Depression Priority: Secondary Status: Acute Qualifiers: Depression Type: unspecified Qualified Code(s): F32.9 - Major depressive disorder, single episode, unspecified (6) DVT prophylaxis Priority: Secondary Status: Acute (7) Hyperlipidemia Priority: Secondary Status: Acute Qualifiers: Hyperlipidemia type: unspecified Qualified Code(s): E78.5 - Hyperlipidemia, unspecified Hospital course: Ms. Reyes is a 63 year old female with a past medical history significant for chronic back and neck pain, shoulder pain, migraine, right wrist surgery on 11/11/2018 presented to the hospital because of increased pain and swelling and redness on the right wrist at the site of surgery. CT scan of the wrist was done which was concerning for focal tenosynovitis of the right wrist. Seems to be a complication of the previous surgery. Patient got incision, drainage, irrigation and debridement of the right first dorsal compartment. She was continued on the antibiotics. Her pain and swelling improved with the IV antibiotics and following the incision and drainage. Wound cultures are growing Staphylococcus species. She is being discharged on doxycycline for additional 7 days. Instructed follow-up with orthopedics as an outpatient in one week. Patient is feeling fine today. Instructions for the dressing are included in the discharge instructions. Her potassium was low which was repleted. SHe is being discharged in stable condition. - Time Spent with Patient Total time spent providing and/or coordinating discharge services: 32 minutes - Discharge Medications Prescriptions: New Doxycycline 100 mg PO BID 7 Days #14 capsule Continued Oxycodone HCl [Oxycontin] 5 mg PO HS Gabapentin [Neurontin] 400 mg PO TID Meclizine HCl [Verticalm] 25 mg PO DAILY PRN PRN Reason: Dizziness Alendronate Sodium [Fosamax] 70 mg PO QWEEK Simvastatin [Zocor] 20 mg PO HS Pantoprazole Sodium 40 mg PO BID Citalopram Hydrobromide [Citalopram HBr] 10 mg PO DAILY Venlafaxine HCl [Venlafaxine HCl ER] 150 mg PO DAILY Amantadine HCl [Amantadine] 100 mg PO BID Home Medications: Alendronate Sodium [Fosamax] 70 mg PO QWEEK 12/19/17 [History] Gabapentin [Neurontin] 400 mg PO TID 12/19/17 [History] Meclizine HCl [Verticalm] 25 mg PO DAILY PRN 12/19/17 [History] Oxycodone HCl [Oxycontin] 5 mg PO HS 12/19/17 [History] Simvastatin [Zocor] 20 mg PO HS 12/19/17 [History] Citalopram Hydrobromide [Citalopram HBr] 10 mg PO DAILY 11/16/18 [History] Pantoprazole Sodium 40 mg PO BID 11/16/18 [History] Amantadine HCl [Amantadine] 100 mg PO BID 02/06/19 [History] Venlafaxine HCl [Venlafaxine HCl ER] 150 mg PO DAILY 02/06/19 [History] Doxycycline 100 mg PO BID 7 Days #14 capsule 02/08/19 [Rx] Allergies/Adverse Reactions: Allergy/AdvReac Type Severity Reaction Status Date / Time codeine Allergy Hives Verified 06/26/17 09:56 Penicillins Allergy Hives Verified 06/26/17 09:56 Date of admission: 02/06/19 12:46 Primary care physician: Lang Davis MD - Constitutional Vitals: Temp Pulse Resp BP Pulse Ox 98.0 F 66 15 117/63 96 02/08/19 07:02 02/08/19 07:02 02/08/19 07:02 02/08/19 07:02 02/08/19 07:02 Exam: General: Alert and oriented, no physical distress, able to follow commands. HEENT: No thyromegaly, no lymphadenopathy, no discharge. Eyes: No discharge. Normal conjuctiva, no icterus Respiratory: Normal vesicular breathing, no added sounds, breathing equal in both sides. CVS: Normal heart sounds, no murmurs, regular rhthm, no edema Extremities: Right wrist wrapped and dressed, distal pulses intact, neurovascular intact. Lymph nodes: No lymphadenopathy Gastrointestinal: Soft, nontender abdomen, normal abdominal sounds. No distention noted. Genitourinary: No paravertebral tenderness. Neurological: Alert and oriented. No focal deficits. Cranial nerves II-XII intact. - Patient Status Disposition: Home, Self-Care Condition: Good - Discharge Instructions Follow Up With: Lang Davis MD [Primary Care Provider] - Avel Cedillo MD [Partnered Physician] - Additional Instructions: DISCHARGE INSTRUCTIONS Dr. Cedillo DISCHARGE DIAGNOSIS/PROCEDURE I&D of the right wrist first dorsal compartment ACTIVITY: Avoid aggressive activities with arm in which you were operated. Okay to move your fingers which will be good exercise. WOUND CARE: Change dressing daily and cleanse the wound with warm, soapy water and rinsed clean. Recover. MEDICATIONS: Oral antibiotics per the discharging hospitalist FOLLOW-UP Follow-up with Dr. Cedillo or Nancy Back PA-C at the office 1 week from the surgery date for a post operative evaluation. Call the office at [phone] to schedule or confirm your appointment. WHEN TO CALL THE DOCTOR OR WHEN TO SEEK CARE BEFORE YOUR APPOINTMENT 1. Excess swelling or increased numbness not made better by elevating the hand and moving the fingers. 2. Uncontrolled pain. 3. A color change in your hand or fingers. 4. Worsening redness or drainage. 5. Fevers over 100.5 degrees F or 38.1 degrees C. 6. Any symptoms that bring concern to you. - Diet and Activity Diet: advance to your usual diet
[2019-02-08] MEDS: Piperacillin/Tazobactam 3.375 GM in 0.9 % Sodium Chloride Mini Bag 100 ML IVPB SCH (08:47)
[2019-02-08] MEDS: Gabapentin 400 MG CAPSULE PO SCH (08:47)
[2019-02-08] MEDS: Venlafaxine XR (24 HR) 75 MG CAP.ER.24H PO SCH (08:48)
[2019-02-08] MEDS ORDERED: FLU Vac QV 19-20 (6Month+)/PF 0.5 ML SYRINGE IM ONE (10:32)
== END 2019-02-08 12:30 | disposition home or self-care (01) ==
LOC: EMEROOARM 09:46 → 3ANU 09:46 → SUATTDRO 12:46 → 3ANU 13:24
PROVIDERS: ADMIT Internal Medicine; ATTEND Internal Medicine